=== PATIENT | male | born 2000 | race African-American/Black ===

== ENCOUNTER 2023-04-24 12:10 | Outpatient (REF) | payer OTHER, SELFPAY ==
[2023-04-24 13:44] LABS: Basophils Percent Auto 0.4 % (0-2); Eosinophils Absolute Auto 0.1 X10*3/uL (0.0-0.4); Eosinophils Percent Auto 1.3 % (0-4); Hematocrit 45.2 % (42.0-52.0); Hemoglobin 14.8 g/dl (14.0-18.0); Imm Gran Abs Auto 0.01 X10*3/uL (0.00-0.03); Imm Gran Pct Auto 0.2 % (0.0-0.4); Lymphocytes Absolute Auto 1.6 X10*3/uL (1.2-4.9); Lymphocytes Percent Auto 33.8 % (20-40); MANUAL DIFF FLAG SCAN; Mean Corpuscular HGB Conc 32.7 g/dl (31.0-36.0); Mean Corpuscular Hemoglobin 28.9 pg (27.0-33.0); Mean Corpuscular Volume 88.3 fL (80.0-98.0); Mean Platelet Volume 10.9 fL (9.4-12.4); Monocytes Absolute Auto 0.5 X10*3/uL (0.1-1.2); Monocytes Percent Auto 10.5 % (2-11); Neutrophils Absolute Auto 2.5 x10*3/uL (2.0-8.3); Neutrophils Percent Auto 53.8 % (45-73); Platelet Count 239 X10*3/uL (160-400); Red Blood Count 5.12 X10*6/uL (4.60-5.80); Red Cell Distribution Width 12.4 % (11.0-16.0); SCAN SMEAR FLAG 1; White Blood Count 4.7 X10*3/uL (4.8-10.8)
[2023-04-24 14:18] LABS: SLIDE REVIEW VERIFIED
[2023-04-24 14:41] LABS: Alanine Aminotransferase 18 U/L (0-40); Albumin Level 4.4 g/dL (3.5-5.0); Alkaline Phosphatase 58 U/L (39-117); Anion Gap 16 (12-20); Aspartate Amino Transferase 15 U/L (5-37); Bilirubin Total 0.7 mg/dL (0.0-1.0); Blood Urea Nitrogen 10 mg/dL (9-16); Calcium 9.5 mg/dL (8.4-10.2); Carbon Dioxide 24 mmol/L (22-29); Chloride 106 mmol/L (96-108); Estimated Glomerular Filt Rate > 60; Glucose Random 77 mg/dL (60-115); Potassium 3.5 mmol/L (3.3-5.1); Sodium 142 mmol/L (135-145); Total Protein 7.8 g/dL (6.5-8.0)
[2023-04-25 03:29] LABS: CT PCR DETECTED (Not Detect.); NG PCR NOT DETECTED (Not Detect.)
[2023-04-25 05:07] LABS: Syphilis Screen Nonreactive (Nonreactive)
[2023-04-25 05:31] LABS: HBS Num1 17.67 mIU/mL (0-7.99); HBc Num1 0.12 S/CO (0.00-0.79); HBsAGNum1 0.43 S/CO (0.00-0.99); HIV AB/AG Nonreactive (Nonreactive); HIV Num 1 0.05 S/CO (0.00-0.99); Hepatitis B Core Antibody Nonreactive (Nonreactive); Hepatitis B Surface Antigen Negative (Negative); ~Hepatitis B Surface Antibody REACTIVE (Nonreactive)
[2023-04-25 05:43] LABS: ~HepC Num1 0.16 S/CO (0.00-0.79); ~Hepatitis C Antibody Nonreactive (Nonreactive)
== END 2023-04-24 12:11 | disposition home or self-care (01) ==
LOC: HO.HHCL 12:10
PROVIDERS: Visit Provider Student in an Organized Health Care Education/Training Program
DX: R36.9 Urethral discharge, unspecified (principal)
CPT/HCPCS: 0353U; 36415; 80053; 85025; 86704; 86706; 86780; 86803; 87070; 87205; 87340; 87389

== ENCOUNTER 2023-08-07 10:23 | Outpatient (REF) | payer OTHER, SELFPAY ==
[2023-08-07 11:52] LABS: Cholesterol 130 mg/dL (<200); HDL Cholesterol 54 mg/dL (>40); LDL Cholesterol Calculated 64 mg/dL (<100); Triglycerides 64 mg/dL (<150)
[2023-08-07 13:13] LABS: CT PCR NOT DETECTED (Not Detect.); NG PCR NOT DETECTED (Not Detect.)
== END 2023-08-07 10:24 | disposition home or self-care (01) ==
LOC: HO.HHCL 10:23
PROVIDERS: Visit Provider Internal Medicine Geriatric Medicine
DX: N34.2 Other urethritis (principal); Z13.220 Encounter for screening for lipoid disorders
CPT/HCPCS: 0353U; 36415; 80061

== ENCOUNTER 2023-12-22 09:43 | Outpatient (REF) | payer OTHER, SELFPAY ==
[2023-12-22 11:50] LABS: Anion Gap 8 (12-20); Blood Urea Nitrogen 8 mg/dL (9-16); Calcium 9.8 mg/dL (8.4-10.2); Carbon Dioxide 32 mmol/L (22-29); Chloride 106 mmol/L (96-108); Estimated Glomerular Filt Rate > 60; Glucose Random 88 mg/dL (60-115); Potassium 4.3 mmol/L (3.3-5.1); Sodium 142 mmol/L (135-145)
== END 2023-12-22 09:44 | disposition home or self-care (01) ==
LOC: HO.HHCL 09:43
PROVIDERS: Visit Provider Internal Medicine Geriatric Medicine
DX: Z13.1 Encounter for screening for diabetes mellitus (principal)
CPT/HCPCS: 36415; 80048

== ENCOUNTER 2024-01-19 13:04 | Outpatient (REF) | payer OTHER, SELFPAY ==
[2024-01-20 08:54] LABS: HBS Num1 > 1000.00 mIU/mL (0-7.99); HBc Num1 0.25 S/CO (0.00-0.79); HBsAGNum1 0.38 S/CO (0.00-0.99); Hepatitis B Core Antibody Nonreactive (Nonreactive); Hepatitis B Surface Antigen Negative (Negative); Syphilis Screen Nonreactive (Nonreactive); ~HepC Num1 0.25 S/CO (0.00-0.79); ~Hepatitis B Surface Antibody REACTIVE (Nonreactive); ~Hepatitis C Antibody Nonreactive (Nonreactive)
[2024-01-20 08:56] LABS: Hepatitis A Antibody IgG REACTIVE (Nonreactive); ~Hepatitis A Antibody IgG 12.24 S/CO (0.00-0.99)
[2024-01-20 09:20] LABS: HIV AB/AG Nonreactive (Nonreactive); HIV Num 1 0.87 S/CO (0.00-0.99)
[2024-01-20 11:52] LABS: CT PCR NOT DETECTED (Not Detect.); NG PCR NOT DETECTED (Not Detect.)
== END 2024-01-19 13:05 | disposition home or self-care (01) ==
LOC: HO.HHCL 13:04
PROVIDERS: Visit Provider Family Medicine
DX: R36.9 Urethral discharge, unspecified (principal)
CPT/HCPCS: 0353U; 36415; 86704; 86706; 86708; 86780; 86803; 87340; 87389

== ENCOUNTER 2024-10-18 17:55 | Outpatient (REF) | payer OTHER, SELFPAY ==
--- OUTSIDE RECORDS SUMMARY | 2024-10-18 20:09 | XMS_ITS | Encounter Summary ---
Author Organization [employer] Address [address] [facility] 7t [place] [address] Care Team Providers Care Supervisor Inspection Name Role Phone Name, Ramy COCHRAN Primary Care Provider [phone] Reason for Visit * Reason Comments UTI Encounter Details Date Type Department Care Team ([facility] st Contact Info) Description 10/18/2024 1:00 PM EST Office Visit [facility] [address] [place] [address] [phone] Name, MD Ramy [address] [place] [phone] Dysuria (Primary Dx); UTI symptoms Social History Tobacco Use Types Packs/Day Years Used Date Smoking Tobacco: Never Passive Smoke Exposure: Never Smokeless Tobacco: Never Alcohol Use Standard Drinks/Week Comments Yes 0 (1 standard drink = 0.6 oz pur e alcohol) occassionally Depression Answer Date Recorded Patient Health Questionnaire-9 Score 4 08/13/2024 Patient Health Questionnaire-9 Score 4 08/13/2024 Last PHQ-9: Questionnaire Data Not on file 1 10/13/2023 Housing Stability Answer Date Recorded What is your housing situation today? I have jesus briggs 08/05/[address] you li ve. Do you have problems with any of the following? None of the above 08/05/2024 Food Insecurity Answer Date Recorded Within the past 12 months, y ou worried that your food would run out before you got money to buy more: Never True 08/05/2024 Within the past 12 months,th e food you bought just didn't last and you didn't have enough money to get more: Never True Transportation Answer Date Recorded In the past 12 months, has l ack of transportation kept you from medical appts, meetings, work or from getting things needed for daily living? No 08/05/2024 Utilities Answer Date Recorded In the past 12 months, has t he electric, gas, oil or water company threatened to shut off services in your home? No 08/05/2024 Depression Answer Date Recorded Patient Health Questionnaire-2 Score 3 08/13/2024 Internet Access Answer Date Recorded Internet Access Q1 Yes 08/05/2024 Internet Access Q2 Not on file 08/05/2024 Sex and Gender Information Value Date Recorded Sex Assigned at Male 07/22/2022 10:32 AM EDT Legal Sex Male 10:32 AM EDT Gender Identity Choose not to disclose 10:32 AM EDT Sexual Orientation Choose not to disclose 2021 10:32 AM EDT Travel History Travel Start Travel End [facility] 09/11/2024 09/30/2024 documented as of this encounter Last Filed Vital Signs Vital Sign Reading Time Taken Comments Blood Pressure 155/69 10/18/2024 1:01 PM EST Pulse 90 10/18/2024 1:01 PM EST Temperature 36.8 ??C (98.2 ??F) 10/18/2024 1:01 PM ES T Respiratory Rate 16 10/18/2024 1:01 PM EST Oxygen Saturation 97% 10/18/2024 1:01 PM EST Inhaled Oxygen Concentration - - Weight 92.5 kg (204 lb) 10/18/2024 1:01 PM EST Height - - Body Mass Index 28.45 08/13/2024 10:37 AM EST documented in this encounter Progress Notes * Ramy Hwang MD - 10/18/2024 1:00 PM EST Subjective Patient ID: Warren Rodney is a 24 y.o. adult who presents for UTI. Patient comes complaining of mild dysuria and small amount of urethral discharge since last week. The patient had unprotected intercourse about 2 weeks ago. He is in a monogamous relationship with 1 female assigned at . He denies any other symptoms. He denies any history of insertive anal intercourse. Review of Systems Constitutional: Negative for chills and fever. Genitourinary: Positive for dysuria. See HPI Visit Vitals BP (!) 155/69 (BP Location: Left arm, Patient Position: Sitting, BP Cuff Size: Large adult) Pulse 90 Temp 98.2 ??F (36.8 ??C) (Temporal) Resp 16 Wt 204 lb (92.5 kg) SpO2 97% BMI 28.45 kg/m?? Smoking Status Never BSA 2.15 m?? Objective Physical Exam Constitutional: General: Warren is not in acute distress. Appearance: Warren is not toxic-appearing. Cardiovascular: Rate and Rhythm: Normal rate and regular rhythm. Pulmonary: Effort: Pulmonary effort is normal. Breath sounds: Normal breath sounds. Genitourinary: Penis: Normal. Comments: He showed me a picture of small amount of penile discharge he had this morning Assessment/Plan Diagnoses and all orders for this visit: Dysuria Comments: I will treat empirically for chlamydia and gonorrhea. He will receive 500 mg of ceftriaxone IM today and 7 days of p.o. doxycycline 100 mg twice a day. I recommend the patient to avoid intercourse oruse condoms until we have the results. Further recommendation based on the results and response to the medication started today. Orders: - Urinalysis, Complete, with Reflex to Culture; Future - Chlamydia/N. Gonorrhoeae RNA, TMA, Urogenitial - cefTRIAXone (Rocephin) vial 500 mg - lidocaine (Xylocaine) 1 % injection 50 mg UTI symptoms - POCT urinalysis dipstick manually resulted - Urinalysis, Complete, with Reflex to Culture; Future - Chlamydia/N. Gonorrhoeae RNA, TMA, Urogenitial - cefTRIAXone (Rocephin) vial 500 mg - lidocaine (Xylocaine) 1 % injection 50 mg Other orders - doxycycline (Vibra-Tabs) 100 MG tablet; Take 1 tablet (100 mg) by mouth 2 times daily for 7 days.Take with a full glass of water and do not lie down for at least 30 minutes after. documented in this encounter Plan of Treatment Scheduled Orders Name Type Priority Associated Diagnoses Orde r Schedule Urinalysis, Complete, with Reflex to Culture Lab Routine UTI symptoms Dysuria Expected: 10/18/2024 (Approximate), Expires: 10/18/2025 Chlamydia/N. Gonorrhoeae RNA, TMA, Urogenitial Microbiology Routine UTI symptoms Dysuria Ordered: 10/18/2024 documented as of this encounter Procedures Procedure Name Priority Date/Time Associated Diagnosis Comments POCT URINALYSIS DIPSTICK Routine 10/18/2024 1:12 PM EST UTI symptoms documented in this encounter Results * (ABNORMAL) POCT urinalysis dipstick manually resulted (10/18/2024 1:12 PM EST) Color, UA Yellow Clarity, UA Clear Glucose, UA Negative Bilirubin, UA Negative Ketones, UA Negative Spec Grav, UA 1.025 Blood, UA Negative Negative, None Detected pH, UA 6.0 Protein, UA Trace Urobilinogen, UA 0.2 Leukocytes, UA Few 15(A) Negative, Rare, Trace Nitrite, UA Negative Negative, None Detected Appearance, UA OK Urine 10/18/2024 1:12 PM EST Ramy Hwang MD POINT OF CARE TEST ENTER/EDIT OR DERABLES Final Result documented in this encounter Visit Diagnoses Diagnosis Dysuria- Primary UTI symptoms documented in this encounter Administered Medications Inactive Administered Medications - up to 3 most recent administrations Medication Order MAR Action Action Date Dose Rate Site cefTRIAXone (Rocephin) vial 500 mg 500 mg, Intramuscular, Once, On Fri10/18/24 at 1315, For 1 dose, Suspected Indication (Select all that apply): Sexually Transmitted Infection, Type of Therapy: EmpiricIndications:UTI symptoms,Dysuria Given 10/18/2024 1:15 PM EST 500 mg Right Upper Buttock lidocaine (Xylocaine) 1 % injection 50 mg 50 mg (5 mL), Intradermal, Once, On Fri10/18/24 at 1315, For 1 doseIndications:UTI symptoms,Dysuria Given 10/18/2024 1:15 PM EST 50 mg documented in this encounter Additional Health Concerns Assessment Noted Time PHQ-9 Depression Total Score: 4 08/13/20 24 10:56 AM EST documented as of this encounter Care Teams Supervisor Inspection Relationship Specialty Start Date End Date Name, MD Ramy [address] [place] [address] PCP - General Family Medicine 09/22/18 documented as of this encounter
--- OUTSIDE RECORDS SUMMARY | 2024-10-18 20:09 | XMS_ITS | Clinical Summary ---
Author Organization [employer] Address [address] [facility] 7t [place] [address] Care Team Providers Care Laundry Aid Name Role Phone Name, Ramy COCHRAN Primary Care Provider [phone] Allergies No known active allergies Medications doxycycline (Vibra-Tabs) 100 MG tablet Take 1 tablet (100 mg) by mouth 2 times daily for 7 days. Take with a full glass of water and do not lie down for at least 30 minutes after. 14 tablet 10/18/2024 Active Hospital, Clinic, or Other Facility Administered Medication Ordered Dose Route Frequency Start Date End Date Status cefTRIAXone (Rocephin) vial 500 mgIndications:UTI symptoms,Dysuria 500 mg IM Once 10/18/2024 10/18/2024 Ended lidocaine (Xylocaine) 1 % injection 50 mgIndications:UTI symptoms,Dysuria 50 mg ID Once 10/18/2024 10/18/2024 Ended Active Problems Problem Noted Date Diagnosed Date Penile discharge 01/19/2024 Assessment & Plan (01/19/2024 12:28 PM EDT): - Hx of Chlamydia x 2 . Most recently April 2023. - Recent unprotected sex. - Will treat with presumptive STI with Ceftriaxone and Doxycyline. Urethritis 04/24/2023 Assessment & Plan (04/24/2023 7:01 PM EDT): Pt with symptoms of urethritis with mild dysuria at end of urination and pt reports seen white-purulent discharge Afebrile w Normal exam Pt had recently sex with 2 sexual partners w no protection Hx of gonorrhea 2 y ago Urine dipstick here is neg -pt with meeta risk for STI and with symptoms for possible Gn/vs ch -tx empirically today with CTX 500 mg IM x1 today in clinic and px doxycycline 100 mg BID x 7 days -advised to avoid sun exposure -sent today Urine sample for GN/chl NAAT and I took urethral sample for gn cx -will call pt w lab results but if neg chlamydia will need to stop ATB -if symptoms persist with neg result would test pt x trichomonas -advised to avoid sex for 1 week after tx -discussed about safe sex life and consistent condom use -discussed about consideration for PREP -given has several partners with no condom use-pt would like to think about it but agreed that I request PREP team for them to contact pt to further discuss -STI testing today Acne 09/24/2017 Assessment & Plan (04/16/2023 8:26 PM EDT): there is skin color tiny nodular rash -superficial over neck bl and over back of shoulders and below axilla -rest of exam is normal x 2 days w no systemic symptoms Appears to be over sun exposed areas possible dermatitis -trial w triamcinolone cream BID x no more than 10 days -discussed about STI testing for recent unprotected exposure but rash is not suggestive of it and pt refused testing for now -gave alarm signs and symptoms and to return if rash is not improving --- -pt reports hx of irritation of chin when shaving-not currently and seen in PCP note as well -pt shows me document in his phone that needs log yard manager evaluation to have documented by specialist that pt should not be shaving? -pt requesting dermatology referral -PCP gave similar letter before but states was not accepted at his job in [employer] --gave today referral to log yard manager x it Resolved Problems Problem Noted Date Diagnosed Date Resolved Date Elevated blood pressure reading 04/24/2023 12/22/2023 Assessment & Plan (04/24/2023 7:02 PM EDT): Pt noted to have elevated BP today from normal before Possibly with acute urinary symptoms,anxiety? -advised to f up w PCP to monitor BP COVID-19 virus infection 02/28/202311/2022 Assessment & Plan (02/28/2023 4:15 PM EDT): Drink plenty of fluids and rest If worsening symptoms chest pain, SOB, confusion seek medical attention immediately Acetaminophen PRN Work letter provided Pain in scrotum 05/15/2018 08/07/2023 12/22/2023 Encounters Date Type Department Care Team Description 10/18/2024 1:00 PM EST Office Visit [facility] [address] [place] [phone] Ramy Hwang MD Dysuria (Primary Dx); UTI symptoms 10/18/2024 Orders Only [address] [address] Ramy Hwang MD 10/18/2024 Travel 10/18/[address] [address] Ramy Hwang MD Nurse Triage 08/13/2024 10:30 AM EST Office Visit [address] [address] Ramy Hwang MD PE (physical exam), routine (Primary Dx); Encounter for immunization 08/13/2024 Travel 08/11/[address] [address] Zeenat Rivera [place] Chart Prep 08/05/2024 Patient Outreach [address] [address] Ramy Hwang MD Pre-visit Planning (SDOH Screening negative and Tobacco screening negative) from Last 3 Months Immunizations Name Administration Dates Next Due Hep B, adult 12/22/2023 Influenza injectable quadrivalent preservative f ree 08/07/2023 Influenza, seasonal, injectable, preservative fr ee 08/13/2024 Pfizer Covid-19 Vaccine 12+ 08/13/2024 Tdap 05/15/2018 Social History Tobacco Use Types Packs/Day Years Used Date Smoking Tobacco: Never Passive Smoke Exposure: Never Smokeless Tobacco: Never Tobacco Cessation:Counseling Given: Not Answered Alcohol Use Standard Drinks/Week Comments Yes 0 [...] EDT Travel History Travel Start Travel End [facility] 09/11/2024 09/30/2024 Last Filed Vital Signs Vital Sign Reading Time Taken Comments Blood Pressure 155/69 10/18/2024 1:01 PM EST Pulse 90 10/18/2024 1:01 PM EST Temperature 36.8 ??C (98.2 ??F) 10/18/2024 1:01 PM ES T Respiratory Rate 16 10/18/2024 1:01 PM EST Oxygen Saturation 97% 10/18/2024 1:01 PM EST Inhaled Oxygen Concentration - - Weight 92.5 kg (204 lb) 10/18/2024 1:01 PM EST Height 180.3 cm (5' 11 ) 08/13/2024 10:37 AM EST Body Mass Index 28.45 08/13/2024 10:37 AM EST Plan of Treatment Health Maintenance Due Date Last Done Comments Family Planning (PISQ) 2013 HPV Vaccines (2 - 3-dose series) 01/19/2024 12/22/2023 Hepatitis B Vaccines (2 of 3 - 19+ 3-dose series) 01/19/2024 12/22/2023 SDOH Screening 08/05/2025 08/05/2024 Alcohol/Substance Use Screening 08/13/2025 08/13/2024 Depression Screening 08/13/2025 08/13/2024, 08/13/2024 Tobacco Screening 08/13/2025 08/13/2024 DTaP/Tdap/Td Vaccines (2 - T d or Tdap) 05/15/2028 05/15/2018 Zoster Vaccines (1 of 2) 2048 RSV Patients and Patients Aged 60 years or older (1 - 1-dose 75+ series) 2073 HIV Screening Completed 01/19/2024, 04/24/2023, 04/04/2021 Hepatitis C Screening Completed 01/19/2024 , 04/24/2023, 04/04/2021 COVID-19 Vaccine Completed 08/13/2024, 09/03/2021, 08/13/2021 Influenza Vaccine Completed 08/13/2024, 08/07/2023 HIB Vaccines Aged Out No longer eligi ble based on patient's age to complete this topic Hepatitis A Vaccines Aged Out No long er eligible based on patient's age to complete this topic IPV Vaccines Aged Out No longer eligi ble based on patient's age to complete this topic Meningococcal Vaccine Aged Out No reinaldo waleska eligible based on patient's age to complete this topic Pneumococcal Vaccine: Pediatrics (0 to 5 Years) and At-Risk Patients (6 to 64 Years) Aged Out No longer eligible b ased on patient's age to complete this topic RSV under 20 months Aged Out No longe r eligible based on patient's age to complete this topic Rotavirus Vaccines Aged Out No longer eligible based on patient's age to complete this topic Procedures Procedure Name Priority Date/Time Associated Diagnosis Comments CANCELLED SEROLOGY Routine 10/18/2024 1: 14 PM EST POCT URINALYSIS DIPSTICK Routine 10/18/2024 1:12 PM EST UTI symptoms HEPATITIS C AB W/REFL TO HCV RNA, QN, PCR Routine 01/19/2024 1:06 PM EDT Penile discharge HIV 1/2 ANTIGEN/ANTIBODY, FOURTH GENERATION W/RFL Routine 01/19/2024 1:06 PM EDT Penile discharge from Last 3 Months or Most Recently Relevant to Health Maintenance Results * Cancelled Serology (10/18/2024 1:14 PM EST) Cancelled Serology SEE NOTE [facility] Comment:THE FOLLOWING TESTS WERE CANCELLED: CTNG BY PCRREASON: WORNG CONTAINER 10/18/2024 1:14 PM EST 10/18/2024 5:59 PM EST us Ramy Hwang MD HISTORICAL/NON ORDERABLE LABS Fi nal Result [facility] [address] [place] [phone] * (ABNORMAL) POCT urinalysis dipstick manually resulted [...] UA OK Urine 10/18/2024 1:12 PM EST us Ramy Hwang MD POINT OF CARE TEST ENTER/EDIT OR DERABLES Final Result * Hepatitis C Antibody with Reflex to HCV, RNA, Quantitative, Real-Time PCR (01/19/2024 1:06 PM EDT) Hepatitis C Antibody Nonreactive Nonreactive [facility] Comment:Antibodies to HCV no t detected; does not exclude early acuteHCV infection. Blood Venous blood specimen / Unknown 01/19/2024 1:06 PM EDT 01/19/2024 4:08 PM EDT us Taylor Chaves MD LAB BLOOD ORDERABLES Final Resul t [facility] [address] [place] [address] [phone] * HIV-1/2 Antigen and Antibodies, Fourth Generation, with Reflexes (01/19/2024 1:06 PM EDT) HIV AB/AG Nonreactive Nonreactive [facility] Comment:HIV-1 p24 Ag and/or HIV-1/HIV-2 Ab not detected.A test result that is nonreactive does not exclude thepossibility of exposure to or infection with HIV-1 and/orHIV-2. Nonreactive results in this assay for individualswith prior exposure to HIV-1 and/or HIV-2 may be due toantigen and antibody levels that are below the limit ofdetection of this assay.The [employer] HIV Ag/Ab Combo assay result andsupplemental assay results should be interpreted inconjunction with the patient's clinical presentation,history and other laboratory results. If the results areinconsistent with clinical evidence, additional testing issuggested to confirm the result. Blood Venous blood specimen / Unknown 01/19/2024 1:06 PM EDT 01/19/2024 4:08 PM EDT us Taylor Chaves MD LAB BLOOD ORDERABLES Final Resul t [facility] [address] [place] [address] [phone] from Last 3 Months or Most Recently Relevant to Health Maintenance Insurance [facility] UNICARE UNICARE Care Teams Laundry Aid Relationship Specialty Start Date End Date Name, MD Ramy [address] [place] [phone] PCP - General Family Medicine 09/22/18
--- OUTSIDE RECORDS SUMMARY | 2024-10-18 20:09 | XMS_ITS | Encounter Summary ---
Author Organization [employer] Address [address] [facility] 7t [place] [address] Care Team Providers Care Superintendent Commissary Name Role Phone Name, Ramy COCHRAN Primary Care Provider [phone] Encounter Details Date Type Department Care Team ([facility] st Contact Info) Description 10/18/2024 Orders Only [facility] MEDICINE [address] [place], [place] [phone] Name, MD Ramy [address] [place] [address] Social History Tobacco Use Types Packs/Day Years [...] EDT Travel History Travel Start Travel End [facility] 09/11/2024 09/30/2024 documented as of this encounter Plan of Treatment Not on file documented as of this encounter Procedures Procedure Name Priority Date/Time Associated Diagnosis Comments CANCELLED SEROLOGY Routine 10/18/2024 1: 14 PM EST documented in this encounter Results * Cancelled Serology (10/18/2024 1:14 PM EST) Cancelled Serology SEE NOTE [facility] Comment:THE FOLLOWING TESTS WERE CANCELLED: CTNG BY PCRREASON: WORNG CONTAINER 10/18/2024 1:14 PM EST 10/18/2024 5:59 PM EST Ramy Hwang MD HISTORICAL/NON ORDERABLE LABS Fi nal Result [facility] [address] [place], [place] [phone] documented in this encounter Visit Diagnoses Not on filedocumented in this encounter Additional Health Concerns Assessment Noted Time PHQ-9 Depression Total Score: 4 08/13/20 24 10:56 AM EST documented as of this encounter Care Teams Superintendent Commissary Relationship Specialty Start Date End Date Name, MD Ramy [address] [place] [phone] PCP - General Family Medicine 09/22/18 documented as of this encounter
--- OUTSIDE RECORDS SUMMARY | 2024-10-18 20:09 | XMS_ITS | Encounter Summary ---
Author Organization [employer] Address [address] [facility] 7t [place] [address] Care Team Providers Care Spinning Frame Fixer Name Role Phone Name, Ramy COCHRAN Primary Care Provider [phone] Encounter Details Date Type Department Care Team (Latest Contact Info) Description 10/18/2024 Travel Social History Tobacco Use Types Packs/Day Years [...] EDT Travel History Travel Start Travel End [place] 09/11/2024 09/30/2024 documented as of this encounter Plan of Treatment Not on file documented as of this encounter Visit Diagnoses Not on filedocumented in this encounter Additional Health Concerns Assessment Noted Time PHQ-9 Depression Total Score: 4 08/13/20 24 10:56 AM EST documented as of this encounter Care Teams Spinning Frame Fixer Relationship Specialty Start Date End Date Name, MD Ramy [address] [place] [id number] PCP - General Family Medicine 09/22/18 documented as of this encounter
--- OUTSIDE RECORDS SUMMARY | 2024-10-18 20:09 | XMS_ITS | Encounter Summary ---
Author Organization [employer] Address [address] [facility] 7 [place] [address] Care Team Providers Care Civil Cad Tech Name Role Phone Name, Ramy COCHRAN Primary Care Provider [phone] Reason for Visit * Reason Onset Date Comments Nurse Triage 10/18/2024 Encounter Details Date Type Department Care Team ([facility] st Contact Info) Description 10/18/2024 Telephone [facility] MEDICINE [address] [place], [place] [phone] Name, MD Ramy [address] [place] [address] Nurse Triage Social History Tobacco Use Types Packs/Day Years [...] EDT Travel History Travel Start Travel End [place] 09/11/2024 09/30/2024 documented as of this encounter Miscellaneous Notes * Telephone Encounter - Georgina Patterson RN - 10/18/2024 9:11 AM EST Called pt. He states that every morning when he uses the bathroom, he has pain with urination. The rest of the day he is fine but his initial urine in am is cloudy and some white discharge comes out of penis. Pt. Is sexually active but, states he has had a partner x 3 months. Pt. Does not use protection. Advised pt. To go to walk in now to be able to get a slot in walk in for this afternoon as walk in is already booked for this am and pt. Wants to be seen today. No fever, no blood in urine. Pt. States he drinks plenty of water throughout the day so he knows he is hydrated. Protocol Used: Urination Pain - Male (Adult) *Pain with first morning urine *urine cloudy with white discharge Protocol-Based Disposition: See in Office or Video Visit Today- will go to walk in today at [facility]. Positive Triage Question: * All other males with painful urination, or patient wants to be seen * All higher-acuity triage questions were negative Care Advice Discussed: * Reassurance and Education - Urination Pain * Drink Extra Fluids * Drink Extra Fluids - Extra Notes and Warnings * Telephone Encounter - Rocky Miranda - 10/18/2024 8:59 AM EST Symptom: Penis Symptoms Outcome: Talk to a nurse or provider within 15 minutes Reason: Can't pass urine (can't pee) The caller accepted this outcome. documented in this encounter Plan of Treatment Not on file documented as of this encounter Visit Diagnoses Not on filedocumented in this encounter Additional Health Concerns Assessment Noted Time PHQ-9 Depression Total Score: 4 08/13/20 24 10:56 AM EST documented as of this encounter Care Teams Civil Cad Tech Relationship Specialty Start Date End Date Name, MD Ramy [address] [place] [phone] PCP - General Family Medicine 09/22/18 documented as of this encounter
== END 2024-10-18 17:56 | disposition home or self-care (01) ==
LOC: HO.HHCLNP 17:55
PROVIDERS: Visit Provider Internal Medicine Geriatric Medicine
DX: R39.9 Unspecified symptoms and signs involving the genitourinary system (principal)
CPT/HCPCS: 36415

== ENCOUNTER 2024-10-20 16:13 | Outpatient (REF) | payer OTHER, SELFPAY ==
--- OUTSIDE RECORDS SUMMARY | 2024-10-20 17:47 | XMS_ITS | Encounter Summary ---
Author Organization [employer] Address 75 [facility] 7t [place] [address] Care Team Providers Care Car Shagger Name Role Phone Name, Ramy COCHRAN Primary Care Provider [phone] Reason for Visit * Reason Onset Date Comments Lab Orders 10/19/2024 Encounter Details Date Type Department Care Team ([facility] Contact Info) Description 10/19/2024 Telephone [facility]ICINE [address] [place], [place] [phone] Kitty Pan RN [address] [place], [place] [phone] Lab Orders Social History Tobacco Use Types Packs/Day Years [...] EDT Travel History Travel Start Travel End [place] 09/11/2024 09/30/2024 documented as of this encounter Miscellaneous Notes * Telephone Encounter - Holly Lugo RN - 10/20/2024 9:23 AM EST TC placed to pt to inform that he needs to come to lab to complete a urine sample and new orders were placed by PCP. Advised the lab at [facility] closes at 4:50. Pt states he will come to lab after he is out of work today. Pt verbalized understanding and denies any questions or concerns at this time. * Addendum Note - Ramy Toscano MD - 10/20/2024 7:07 AM ESTAddended by: RAMY TOSCANO on: 10/20/2024 07:07 AM Modules accepted: Orders * Telephone Encounter - Ramy Toscano MD - 10/20/2024 7:05 AM EST Yes, I need a new sample. Please let the patient know. I will reorder for him * Telephone Encounter - Kitty Pan RN - 10/19/2024 4:45 PM EST Received message from [facility] lab stating they did not receive the correct urine sample to process the CT/NG RNA Urogenital lab order. The urine was collected in the wrong cup. The correct urine cup is the small white cup with the green label. Message sent to Dr. Toscano to determine if patient needs to submit new specimen. documented in this encounter Plan of Treatment Scheduled Orders Name Type Priority Associated Diagnoses Orde r Schedule Chlamydia/N. Gonorrhoeae RNA, TMA, Urogenitial Microbiology Routine Dysuria Penile discharge Expected: 10/20/2024 (Approximate), Expires: 10/20/2025 documented as of this encounter Visit Diagnoses Diagnosis Dysuria- Primary Penile discharge Urethral discharge documented in this encounter Additional Health Concerns Assessment Noted Time PHQ-9 Depression Total Score: 4 08/13/20 24 10:56 AM EST documented as of this encounter Care Teams Car Shagger Relationship Specialty Start Date End Date Name, MD Ramy [address] [place] [address] PCP - General Family Medicine 09/22/18 documented as of this encounter
--- OUTSIDE RECORDS SUMMARY | 2024-10-20 17:47 | XMS_ITS | Encounter Summary ---
Author Organization [employer] Address 75 [facility] 7t [place] [address] Care Team Providers Care Physician Practice Market Manager Name Role Phone Name, Ramy COCHRAN Primary Care Provider [phone] Encounter Details Date Type Department Care Team [...] documented as of this encounter Care Teams Physician Practice Market Manager Relationship Specialty Start Date End Date Name, MD Ramy [address] [place] [address] PCP - General Family Medicine 09/22/18 documented as of this encounter
--- OUTSIDE RECORDS SUMMARY | 2024-10-20 17:48 | XMS_ITS | Encounter Summary ---
Author Organization [employer] Address 75 [facility] 7 [place] [address] Care Team Providers Care Electro Tech Name Role Phone Name, Ramy COCHRAN Primary Care Provider [phone] Reason for Visit * Reason Onset Date Comments Nurse Triage 10/18/2024 Encounter Details Date Type Department Care Team ([facility] st Contact Info) Description 10/18/2024 Telephone [facility] MEDICINE [address] [place], [place] [phone] Name, MD Ramy [address] [place] [address] Nurse Triage Social History Tobacco Use Types [...] EDT Travel History Travel Start Travel End [place] 09/11/2024 09/30/2024 documented as of this [...] will go to walk in today at [facility]. Positive Triage Question: * All other males [...] documented as of this encounter Care Teams Electro Tech Relationship Specialty Start Date End Date Name, MD Ramy [address] [place] [address] PCP - General Family Medicine 09/22/18 documented as of this encounter
--- OUTSIDE RECORDS SUMMARY | 2024-10-20 17:48 | XMS_ITS | Clinical Summary ---
Author Organization [employer] Address 75 [facility] 7t [place] [address] Care Team Providers Care Automobile Painter Name Role Phone Name, Ramy COCHRAN Primary Care Provider [phone] Allergies No known active allergies Medications doxycycline [...] me document in his phone that needs electrician substation evaluation to have documented by specialist that pt should not be shaving? -pt requesting dermatology referral -PCP gave similar letter before but states was not accepted at his job in [employer] --gave today referral to electrician substation x it Resolved Problems Problem Noted Date [...] Encounters Date Type Department Care Team Description 10/19/[address] [address] Kitty Pan RN Lab Orders 10/18/2024 1:00 PM EST Office Visit [facility] [address] [place] [address] Ramy Hwang MD Dysuria (Primary Dx); UTI symptoms 10/18/2024 Orders Only [address] [address] Ramy Hwang MD 10/18/2024 Travel 10/18/[address] [address] Ramy Hwang MD Nurse Triage 08/13/2024 10:30 AM EST Office Visit [address] [address] Ramy Hwang MD PE (physical exam), routine (Primary Dx); Encounter for immunization 08/13/2024 Travel 08/11/[address] [address] Zeenat Rivera [place] Chart Prep 08/05/2024 Patient Outreach [address] [address] Ramy Hwang MD Pre-visit Planning (SDOH Screening [...] EDT Travel History Travel Start Travel End [place] 09/11/2024 09/30/2024 Last Filed Vital Signs Vital [...] 5 Years) and At-Risk Patients (6 to 49) Years) Aged Out No longer eligible b [...] 1:14 PM EST) Cancelled Serology SEE NOTE [facility] Comment:THE FOLLOWING TESTS WERE CANCELLED: CTNG BY PCRREASON: WORNG CONTAINER 10/18/2024 1:14 PM EST 10/18/2024 5:59 PM EST us Ramy Hwang MD HISTORICAL/NON ORDERABLE LABS Fi nal Result [facility] [address] [place] [phone] * (ABNORMAL) POCT urinalysis dipstick manually resulted [...] Quantitative, Real-Time PCR (01/19/2024 1:06 PM EDT) [facility] Hepatitis C Antibody Nonreactive Nonreactive [facility] Comment:Antibodies to HCV no t detected; does not exclude early acuteHCV infection. Blood Venous blood specimen / Unknown 01/19/2024 1:06 PM EDT 01/19/2024 4:08 PM EDT Taylor Chaves MD LAB BLOOD ORDERABLES Final Resul t Performing Organization Address [facility]/ZIP Co de Phone Number [facility] [address] [place] [phone] * HIV-1/2 Antigen and Antibodies, Fourth Generation, with Reflexes (01/19/2024 1:06 PM EDT) [facility] HIV AB/AG Nonreactive Nonreactive [facility] Comment:HIV-1 p24 Ag and/or HIV-1/HIV-2 Ab not detected.A test result that is nonreactive does not exclude thepossibility of exposure to or infection with HIV-1 and/orHIV-2. Nonreactive results in this assay for individualswith prior exposure to HIV-1 and/or HIV-2 may be due toantigen and antibody levels that are below the limit ofdetection of this assay.The mxHeroniPost-A-Vox HIV Ag/Ab Combo assay result andsupplemental assay results should be interpreted inconjunction with the patient's clinical presentation,history and other laboratory results. If the results areinconsistent with clinical evidence, additional testing issuggested to confirm the result. Blood Venous blood specimen / Unknown 01/19/2024 1:06 PM EDT 01/19/2024 4:08 PM EDT Taylor Chaves MD LAB BLOOD ORDERABLES Final Resul t Performing Organization Address City/[facility]/ZIP Co de Phone Number [facility] [address] [place] [phone] from Last 3 Months or Most Recently Relevant to Health Maintenance Insurance [id number] Care Teams Automobile Painter Relationship Specialty Start Date End Date Name, MD Ramy [address] [place] [address] PCP - General Family Medicine 09/22/18
--- OUTSIDE RECORDS SUMMARY | 2024-10-20 17:48 | XMS_ITS | Encounter Summary ---
Author Organization [employer] Address 75 [facility] 7t [place] [address] Care Team Providers Care Public Area Attendant Name Role Phone Name, Ramy COCHRAN Primary Care Provider Reason for Visit * Reason Comments UTI Encounter Details Date Type Department Care Team ([facility] st Contact Info) Description 10/18/2024 1:00 PM EST Office Visit [facility] [address] [place] [phone] Name, MD Ramy [address] [place] [phone] Dysuria (Primary Dx); UTI symptoms Social History [...] Travel History Travel Start Travel End [facility] 09/11/2024 09/30/2024 documented as of this encounter [...] documented as of this encounter Care Teams Public Area Attendant Relationship Specialty Start Date End Date Name, MD Ramy [address] [place] [address] PCP - General Family Medicine 09/22/18 documented as of this encounter
--- OUTSIDE RECORDS SUMMARY | 2024-10-20 17:48 | XMS_ITS | Encounter Summary ---
Author Organization [employer] Address 75 [facility] 7t [place] [address] Care Team Providers Care Activity Therapy Specialist Name Role Phone Name, Ramy COCHRAN Primary Care Provider Encounter Details Date Type Department Care Team ([facility] st Contact Info) Description 10/18/2024 Orders Only [facility] MEDICINE [address] [place], [place] [phone] Name, MD Ramy [address] [place] [address] Social History Tobacco Use Types Packs/Day Years [...] EDT Travel History Travel Start Travel End [facility] 09/11/2024 09/30/2024 documented as of this encounter Plan of Treatment Not on file documented as of this encounter Procedures Procedure Name Priority Date/Time Associated Diagnosis Comments CANCELLED SEROLOGY Routine 10/18/2024 1: 14 PM EST documented in this encounter Results * Cancelled Serology (10/18/2024 1:14 PM EST) Cancelled Serology SEE NOTE [facility] Comment:THE FOLLOWING TESTS WERE CANCELLED: CTNG BY PCRREASON: WORNG CONTAINER 10/18/2024 1:14 PM EST 10/18/2024 5:59 PM EST Ramy Hwang MD HISTORICAL/NON ORDERABLE LABS Fi nal Result [facility] [address] [place], [place] [phone] documented in this encounter Visit Diagnoses Not on filedocumented in this encounter Additional Health Concerns Assessment Noted Time PHQ-9 Depression Total Score: 4 08/13/20 24 10:56 AM EST documented as of this encounter Care Teams Activity Therapy Specialist Relationship Specialty Start Date End Date Name, MD Ramy [address] [place] [address] PCP - General Family Medicine 09/22/18 documented as of this encounter
[2024-10-20 18:09] LABS: Appearance Urine Clear; Color Urine Yellow; Glucose Urine UA Negative (Negative); Leukocyte Esterase Urine Negative (Negative); Nitrite Urine Negative (Negative); Urine Blood Negative (Negative); Urine Ketones Negative (Negative); Urine Protein Negative (Neg-Trace)
[2024-10-20 18:12] LABS: Bacteria Urine None Seen (None Seen); Hyaline Casts Urine 0-2 /LPF (0-2); RBC Urine 0-2 /HPF (0-2); Squamous Epithelial Cell Urine 0-2 /HPF (0-2); WBC Urine 0-5 /HPF (0-5)
[2024-10-21 18:49] LABS: CT PCR NOT DETECTED (Not Detect.); NG PCR NOT DETECTED (Not Detect.)
== END 2024-10-20 16:14 | disposition home or self-care (01) ==
LOC: HO.HHCL 16:13
PROVIDERS: Visit Provider Internal Medicine Geriatric Medicine
DX: R30.0 Dysuria (principal); R36.9 Urethral discharge, unspecified; R39.9 Unspecified symptoms and signs involving the genitourinary system
CPT/HCPCS: 81001; 87491; 87591

== ENCOUNTER 2024-11-03 16:40 | Outpatient (REF) | payer OTHER, SELFPAY ==
[2024-11-04 06:37] LABS: CT PCR NOT DETECTED (Not Detect.); NG PCR NOT DETECTED (Not Detect.)
[2024-11-04 22:28] LABS: Trichomonas vaginalis RNA NOT DETECTED (NOT DETECTED)
[2024-11-07 19:48] LABS: Mycoplasma genitalium RNA Detected (Not Detected); Mycoplasma hominis PCR Not Detected (Not Detected); Ureaplasma parvum PCR Not Detected (Not Detected); Ureaplasma urealyticum PCR Not Detected (Not Detected)
== END 2024-11-03 16:41 | disposition home or self-care (01) ==
LOC: HO.HHCLNP 16:40
DX: N34.2 Other urethritis (principal)
CPT/HCPCS: 87491; 87563; 87591; 87661; 87798

== ENCOUNTER 2024-12-29 16:59 | Outpatient (REF) | payer OTHER, SELFPAY ==
[2024-12-29 17:09] LABS: Appearance Urine Clear; Color Urine Yellow; Glucose Urine UA Negative (Negative); Leukocyte Esterase Urine Trace (Negative); Nitrite Urine Negative (Negative); Specific Gravity - Urine 1.025 (1.005-1.025); UMIC TRIGGER UACC YES; Urine Blood Negative (Negative); Urine Ketones Trace mg/dL (Negative); Urine Protein Negative (Neg-Trace)
[2024-12-29 17:14] LABS: Bacteria Urine None Seen (None Seen); Hyaline Casts Urine 0-2 /LPF (0-2); RBC Urine 0-2 /HPF (0-2); Squamous Epithelial Cell Urine 0-2 /HPF (0-2); UACC Culture Trigger YES
--- OUTSIDE RECORDS SUMMARY | 2024-12-29 17:54 | XMS_ITS | Encounter Summary ---
Author Organization [employer] Address 75 [facility] 7 [place] [address] Care Team Providers Care Lockstitch Collar Setter Name Role Phone Name, Ramy COCHRAN Primary Care Provider [phone] Reason for Visit * Reason Onset Date Comments Appointment Request 12/24/2024 Encounter Details Date Type Department Care Team ([facility] Contact Info) Description 12/24/2024 Telephone [facility]INE [address] [place], [place] [phone] Name, MD Ramy [address] [place] [address] Appointment Request Social History Tobacco Use Types Packs/Day Years [...] not to disclose 2021 10:32 AM EDT documented as of this encounter Miscellaneous Notes * Telephone Encounter - Edna Wright - 12/24/2024 10:16 AM EDT Tc from pt requesting a callback as he will like to r/s appointment scheduled due to work schedule.Pt is requesting appointment to be R/S for March or April Please return call [phone] documented in this encounter Plan of Treatment Upcoming Encounters Date Type Department Care Team (Late st Contact Info) Description 03/21/2025 11:30 AM EDT Office Visit [facility] [address] [place] [address] Name, MD Ramy [address] [place] [address] documented as of this encounter Visit Diagnoses Not on filedocumented in this encounter Additional Health Concerns Assessment Noted Time PHQ-9 Depression Total Score: 4 08/13/20 24 10:56 AM EST documented as of this encounter Care Teams Lockstitch Collar Setter Relationship Specialty Start Date End Date NameRamy MD [address] [place] [address] PCP - General Family Medicine 09/22/18 documented as of this encounter
--- OUTSIDE RECORDS SUMMARY | 2024-12-29 17:54 | XMS_ITS | Encounter Summary ---
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 (Primary Dx); Dysuria; Urethral discharge; Scrotal pain; Urethritis Social History Tobacco Use Types Packs/Day Years [...] AM EDT documented as of this encounter Last Filed Vital Signs Vital Sign Reading Time Taken Comments Blood Pressure 149/74 12/29/2024 2:07 PM EDT Pulse 68 12/29/2024 2:07 PM EDT Temperature - - Respiratory Rate 21 12/29/2024 2:07 PM EDT Oxygen Saturation 98% 12/29/2024 2:07 PM EDT Inhaled Oxygen Concentration - - Weight 92.4 kg (203 lb 12.8 oz) 12/29/2024 2:07 PM EDT Height 180.3 cm (5' 11 ) 12/29/2024 2:07 PM EDT Body Mass Index 28.42 12/29/2024 2:07 PM EDT documented in this encounter Progress Notes * Ramy Hwnag MD - 12/29/2024 2:00 PM EDT Subjective Patient ID: [place] Rodney is a 24 y.o. adult who presents for Difficulty Urinating, urethral discharge, and Testicle Pain. Patient comes complaining of 2 days of dysuria, clear urethral discharge, and 1 day of right scrotal discomfort. The patient is monogamous with 1 female partner. He was treated for mycoplasma genitalium infection last month. He has not been sexually active since last month. He tested negative for chlamydia and gonorrhea in September and October. He tested negative for HIV, syphilis, viral hepatitis last year. Review of Systems Constitutional: Negative for chills and fever. HENT: Negative for sore throat. Respiratory: Negative for cough, shortness of breath and wheezing. Cardiovascular: Negative for chest pain, palpitations and leg swelling. Gastrointestinal: Negative for abdominal pain. Genitourinary: See HPI Visit Vitals BP (!) 149/74 (BP Location: Left arm, Patient Position: Sitting, BP Cuff Size: Adult) Pulse 68 Resp 21 Ht 5' 11 (1.803 m) Wt 203 lb 12.8 oz (92.4 kg) SpO2 98% BMI 28.42 kg/m?? Smoking Status Never BSA 2.15 m?? Objective Physical Exam Constitutional: General: [place] is not in acute distress. Appearance: [place] is not toxic-appearing. Cardiovascular: Rate and Rhythm: Normal rate and regular rhythm. Pulses: Normal pulses. Heart sounds: No murmur heard. Genitourinary: Penis: Normal. Testes: Normal. Latest Reference Range & Units 11/03/24 00:00 11/03/24 14:29 Trichomas vaginalis RNA, QL, TMA NOT DETECTED NOT DETECTED CT PCR Not Detect. NOT DETECTED Mycoplasma Genitalium, rRNA,TMA Not Detected Detected ! MYCOPLASMA/UREAPLASMA PANEL Rpt ! NG PCR Not Detect. NOT DETECTED Sureswab(R), Mycoplasma Hominis, Real-Time Pcr Not Detected Not Detected U. Parvum DNA Not Detected Not Detected U. Urealyticum DNA Not Detected Not Detected !: Data is abnormal Rpt: View report in Results Review for more information Assessment/Plan Diagnoses and all orders for this visit: Dysuria/Urethritis due to Mycoplasma genitalium Comments: Possible mycoplasma genitalium treatment failure. I will treat again with Doxy 100 mg twice a day for 7 days followed by moxifloxacin 400 mg but I will extend the course of moxifloxacin to 14 days. I am retesting him for GC, chlamydia, mycoplasma, check urine culture. I asked him to please call if he has persistent symptoms after finishing the antibiotics. We discussed the side effects of quinolones. I recommended to avoid heavy lifting for a couple of weeks because of the possibility of tendinitis. I recommended referral to ID because of possible resistant mycoplasma genitalium infection but he would like to wait to see how he feels after is done with the antibiotics. Orders: - Chlamydia/N. Gonorrhoeae RNA, TMA, Urogenitial - Mycoplasma genitalium, rRNA, TMA; Future - Urinalysis, Complete, with Reflex to Culture; Future Urethral discharge - Chlamydia/N. Gonorrhoeae RNA, TMA, Urogenitial - Mycoplasma genitalium, rRNA, TMA; Future - Urinalysis, Complete, with Reflex to Culture; Future Scrotal pain - Chlamydia/N. Gonorrhoeae RNA, TMA, Urogenitial - Mycoplasma genitalium, rRNA, TMA; Future - Urinalysis, Complete, with Reflex to Culture; Future Urethritis - Chlamydia/N. Gonorrhoeae RNA, TMA, Urogenitial - Mycoplasma genitalium, rRNA, TMA; Future - Urinalysis, Complete, with Reflex to Culture; Future Other orders - doxycycline (Vibra-Tabs) 100 MG tablet; Take 1 tablet (100 mg) by mouth 2 times daily for 7 days.Take with a full glass of water and do not lie down for at least 30 minutes after. - moxifloxacin (Avelox) 400 MG tablet; Take 1 tablet (400 mg) by mouth Once per day for 14 days. documented in this encounter Plan of Treatment Upcoming Encounters Date Type Department Care Team (Late st Contact Info) Description 03/21/2025 11:30 AM EDT Office Visit [facility] [address] [place] [phone] Name, MD Ramy [address] [place] [phone] Scheduled Orders Name Type Priority Associated Diagnoses Orde r Schedule Chlamydia/N. Gonorrhoeae RNA, TMA, Urogenitial Microbiology Routine Dysuria Urethral discharge Scrotal pain Urethritis Ordered: 12/29/2024 Mycoplasma genitalium,??rRNA, TMA Lab Routine Dysuria Urethral discharge Scrotal pain Urethritis Expected: 12/29/2024 (Approximate), Expires: 12/29/2025 documented as of this encounter Procedures Procedure Name Priority Date/Time Associated Diagnosis Comments URINALYSIS, COMPLETE, WITH REFLEX TO CULTURE Routine 12/29/2024 2:30 PM EDT Dysuria Urethral discharge Scrotal pain Urethritis documented in this encounter Results * (ABNORMAL) Urinalysis, Complete, with Reflex to Culture (12/29/2024 2:30 PM EDT) Color Urine Yellow [facility] Appearance Urine Clear [facility] PH 6.0 5.0 - 9.0 [facility] Glucose Urine UA Negative Negative mg/dL [facility] Urine Blood Negative Negative [facility] Specific [place] - Urine 1.025 1.005 - 1.025 [facility] Urine Protein Negative Neg-Trace mg/dL [facility] Urine Ketones Trace Negative mg/dL [facility] Nitrite Urine Negative Negative [facility] Leukocyte Esterase Urine Trace(A) Negative [facility] RBC Urine 0-2 0 - 2 /HPF [facility] Urine WBC 11-20(A) 0 - 5 /HPF [facility] Urine Squamous Epithelial Cell 0-2 0 - 2 /HPF [facility] Urine Bacteria None Seen None Seen [facility] Hyaline Casts, Urine 0-2 0 - 2 /LPF [facility] Urine 12/29/2024 2:30 PM EDT 12/29/2024 5:02 PM EDT Narrative [facility] - 12/29/2024 5:19 PM EDT Urine, Clean Catch Ramy Hwang MD LAB URINE ORDERABLES Final Resul t [facility] [address] [place], [place] [phone] documented in this encounter Visit Diagnoses Diagnosis Urethritis due to Mycoplasma genitalium- Primary Dysuria Urethral discharge Scrotal pain Unspecified disorder of male genital organs Urethritis Unspecified urethritis documented in this encounter Additional Health Concerns Assessment Noted Time PHQ-9 Depression Total Score: 4 08/13/20 24 10:56 AM EST documented as of this encounter Care Teams Knife Glazer Relationship Specialty Start Date End Date Name, MD Ramy [address] [place] [address] PCP - General Family Medicine 09/22/18 documented as of this encounter
--- OUTSIDE RECORDS SUMMARY | 2024-12-29 17:54 | XMS_ITS | Clinical Summary ---
Author Organization [employer] Address [address] [facility] 7[address] [place] [address] Care Team Providers Care Manager Organizational Name Role Phone Name, Ramy COCHRAN Primary Care Provider [phone] Allergies No known active allergies Medications doxycycline (Vibra-Tabs) 100 MG tablet Take 1 tablet (100 mg) by mouth 2 times daily for 7 days. Take with a full glass of water and do not lie down for at least 30 minutes after. 14 tablet 5 025 Active moxifloxacin (Avelox) 400 MG tablet Take 1 tablet (400 mg) by mouth Once per day for 14 days. 14 tablet 5 025 Active moxifloxacin (Avelox) 400 MG tabletIndicati ons:Urethritis Once you complete the course of doxycycline, please start this medication. Take 1 tablet daily for 7 days. 7 tablet 5 025 Discontinued Active Problems Problem Noted Date Diagnosed Date Urethritis 04/24/2023 Assessment & Plan (11/03/2024 2:40 PM EST): Pt past GC/CT and U/A neg Pt was treated for gonorrhea and had partial treatment for chlamydia Urethritis symptoms are persistent Will repeat GC/CT today and also test for trich and mycoplasma Will treat empirically for mycoplasma per UpToDate guidelines: doxycycline 100 mg BID x 7 days, followed by moxifloxacin 400 mg once daily x 7 days Will f/u with results and any changes to treatment if necessary Pt may RTC if symptoms worsen or do not improve with treatment Advised to abstain from sexual intercourse during course of treatment and encouraged safe sexual practices and use of condoms. Assessment & Plan (04/24/2023 7:01 PM EDT): [...] me document in his phone that needs railway signal operator evaluation to have documented by specialist that pt should not be shaving? -pt requesting dermatology referral -PCP gave similar letter before but states was not accepted at his job in [employer] --gave today referral to railway signal operator x it Resolved Problems Problem Noted Date Diagnosed Date Resolved Date Penile discharge 01/19/2024 11/03/2024 Assessment & Plan (01/19/2024 12:28 PM EDT): - Hx of Chlamydia x 2 . Most recently April 2023. - Recent unprotected sex. - Will treat with presumptive STI with Ceftriaxone and Doxycyline. 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); Dysuria; Urethral discharge; Scrotal pain; Urethritis 12/29/2024 Travel 12/29/[address] [address] Ramy Hwang MD Nurse Triage 12/24/[address] [address] Rock Chance [place] Appointment Request 12/24/[address] [address] Ramy Hwang MD Appointment Request 11/09/[address] [address] Zamzam Rizzo RN 11/03/2024 2:00 PM EST Office Visit [address] [address] Ramírez, Alexxis, HOOK AND EYE MACHINE OPERATOR Urethritis (Primary Dx) 11/03/2024 Travel 11/03/2024 Telephone [facility] [address] [place] [address] Ramy Hwang MD Nurse Triage 10/22/2024 Telephone [facility] [address] [place] [address] Holly Lugo, DOYLE 10/19/[address] [address] Kitty Pan, general practitioner Orders 10/18/2024 1:00 PM EST Office Visit [facility] [address] [place] [address] Ramy Hwang MD Dysuria (Primary Dx); UTI symptoms 10/18/2024 Orders Only [facility] [address] [place] [address] Ramy Hwang MD 10/18/2024 Travel 10/18/[address] [address] Ramy Hwang MD Nurse Triage from Last 3 Months Immunizations Name Administration Dates Next Due HPV 9-Valent 12/22/2023 Hep B, adult 12/22/2023 Influenza injectable quadrivalent [...] not to disclose 2021 10:32 AM EDT Last Filed Vital Signs Vital Sign Reading Time Taken Comments Blood Pressure 149/74 12/29/2024 2:07 PM EDT Pulse 68 12/29/2024 2:07 PM EDT Temperature 36.8 ??C (98.2 ??F) 11/03/2024 2:13 PM ES T Respiratory Rate 21 12/29/2024 2:07 PM EDT Oxygen Saturation 98% 12/29/2024 2:07 PM EDT Inhaled Oxygen Concentration - - Weight 92.4 kg (203 lb 12.8 oz) 12/29/2024 2:07 PM EDT Height 180.3 cm (5' 11 ) 12/29/2024 2:07 PM EDT Body Mass Index 28.42 12/29/2024 2:07 PM EDT Plan of Treatment Upcoming Encounters Date Type Department Care Team (Late st Contact Info) Description 03/21/2025 11:30 AM EDT Office Visit [facility] [address] [place] [address] Name, MD Ramy [address] [place] [address] Health Maintenance Due Date Last Done Comments Family Planning (PISQ) 2013 HPV Vaccines (2 - 3-dose series) 01/19/2024 12/22/2023 Hepatitis B Vaccines (2 of 3 - 19+ 3-dose series) 01/19/2024 12/22/2023 SDOH Screening 08/05/2025 08/05/2024 Alcohol/Substance Use Screening 08/13/2025 08/13/2024 Depression Screening 08/13/2025 08/13/2024, 08/13/2024 Tobacco Screening 12/29/2025 12/29/2024 DTaP/Tdap/Td Vaccines (2 - T d or [...] EDT Dysuria Urethral discharge Scrotal pain Urethritis CHLAMYDIA/N. GONORRHOEAE RNA, TMA, UROGENITAL Routine 11/03/2024 2:29 PM EST Urethritis TRICHOMONAS VAGINALIS RNA, QUALITATIVE, TMA Routine 11/03/2024 12:00 AM EST Urethritis MYCOPLASMA/UREAPLASM A PANEL Routine 11/03/2024 12:00 AM EST URINALYSIS, COMPLETE, WITH REFLEX TO CULTURE Routine 10/20/2024 4:20 PM EST UTI symptoms Dysuria CHLAMYDIA/N. GONORRHOEAE RNA, TMA, UROGENITAL Routine 10/20/2024 4:20 PM EST Dysuria Penile discharge CANCELLED SEROLOGY Routine 10/18/2024 1: 14 PM EST POCT URINALYSIS DIPSTICK Routine 10/18/2024 1:12 PM EST UTI symptoms HEPATITIS C AB W/REFL TO HCV RNA, QN, PCR Routine 01/19/2024 1:06 PM EDT Penile discharge HIV 1/2 ANTIGEN/ANTIBODY, FOURTH GENERATION W/RFL Routine 01/19/2024 1:06 PM EDT Penile discharge from Last 3 Months or Most Recently Relevant to Health Maintenance Results * (ABNORMAL) Urinalysis, Complete, with Reflex to Culture (12/29/2024 2:30 PM EDT) Only the most recent of2 resultswithin the time period is included. Color Urine Yellow [facility] Appearance Urine Clear [facility] PH 6.0 5.0 - 9.0 [facility] Glucose Urine UA Negative Negative mg/dL [facility] Urine Blood Negative Negative [facility] Specific [place] - Urine 1.025 1.005 - 1.025 [facility] Urine Protein Negative Neg-Trace mg/dL [facility] Urine Ketones Trace Negative mg/dL [facility] Nitrite Urine Negative Negative [facility] Leukocyte Esterase Urine Trace(A) Negative [facility] RBC Urine 0-2 0 - 2 /HPF [facility] Urine WBC 11-20(A) 0 - 5 /HPF [facility] Urine Squamous Epithelial Cell 0-2 0 - 2 /HPF [facility] Urine Bacteria None Seen None Seen [facility] Hyaline Casts, Urine 0-2 0 - 2 /LPF [facility] Urine 12/29/2024 2:30 PM EDT 12/29/2024 5:02 PM EDT Narrative [facility] - 12/29/2024 5:19 PM EDT Urine, Clean Catch us Ramy Name LAB URINE ORDERABLES Final Resul t [facility] [address] [place] [phone] * Chlamydia/N. Gonorrhoeae RNA, TMA, Urine (11/03/2024 2:29 PM EST) Only the most recent of2 resultswithin the time period is included. CT PCR NOT DETECTED Not Detect. [facility] Comment:A not detected test result does not exclude the possibilityof infection because test results can be affected byimproper specimen collection, concurrent antibiotic therapy,or the number of organisms in the specimen which may bebelow the sensitivity of the test. As with many diagnostictests, results from the Xpert CT/NG assay should beinterpreted in conjunction with other laboratory andclinical data available to the clinician.Xpert CT/NG performance has not been evaluated in patientsless than 14 years of age. The assay should not be used forthe evaluationof suspected sexual abuse or for other medico-legalindications. Additional testing is recommended in anycircumstance when false positive or false negative resultscould lead to adverse medical, social or psychologicalconsequences. NG PCR NOT DETECTED Not Detect. [facility] Comment:A not detected test result does not exclude the possibilityof infection because test results can be affected byimproper specimen collection, concurrent antibiotic therapy,or the number of organisms in the specimen which may bebelow the sensitivity of the test. As with many diagnostictests, results from the Xpert CT/NG assay should beinterpreted in conjunction with other laboratory andclinical data available to the clinician.Xpert CT/NG performance has not been evaluated in patientsless than 14 years of age. The assay should not be used forthe evaluationof suspected sexual abuse or for other medico-legalindications. Additional testing is recommended in anycircumstance when false positive or false negative resultscould lead to adverse medical, social or psychologicalconsequences. Urine (Urine, Random) 11/03/2024 2:29 PM EST 11/03/2024 4:43 PM EST Narrative [facility] - 11/04/2024 6:37 AM EST Urine [facility] LAB MICROBIOLOGY - GENERA L ORDERABLES Final Result Performing Organization Address [facility] de Phone Number [facility] [address] [place] [phone] * Trichomonas RNA (Urine/Vaginal) (11/03/2024 12:00 AM EST) Trichomas vaginalis RNA, QL, TMA NOT DETECTED NOT DETECTED [facility] Comment:For additional infor cristobal, please refer tohttp://education.[employer]/faq/Trichomonastma(This link is being provided for informational/educational purposes only.)THIS TEST WAS PERFORMED AT:[employer] [place] [phone] CHENG MD Urine 11/03/2024 11/03/2024 [facility] LAB BODY FLUIDS AND STOOL S ORDERABLES Final Result Performing Organization Address [facility] Co de Phone Number [facility] [address] [place] [phone] * (ABNORMAL) Mycoplasma/Ureaplasma??Panel (11/03/2024 12:00 AM EST) Sureswab(R), Mycoplasma Hominis, Real-Time Pcr Not Detected Not Detected [facility] Comment:THIS TEST WAS PERFOR MED AT:[employer] [id number] [place] [phone] CANALES MD,PHD Mycoplasma Genitalium, rRNA,TMA Detected(A ) Not Detected [facility] Comment:THIS TEST WAS PERFOR MED AT:[employer] [address] [phone] CANALES MD,PHD U. Parvum DNA Not Detected Not Detected [facility] U. Urealyticum DNA Not Detected Not Detected [facility] Comment:This test was develo ped and its analyticalperformance characteristics have been determinedby [employer] [place], [place].It has not been cleared or approved by the FDA. Thisassay has been validated pursuant to the CLIAregulations and is used for clinical purposes.THIS TEST WAS PERFORMED AT:[employer] [id number] [place] [phone] CANALES MD,PHD 11/03/2024 11/03/2024 [facility] LAB MICROBIOLOGY - GENERA L ORDERABLES Final Result [facility] [address] [place] [phone] * Cancelled Serology (10/18/2024 1:14 PM EST) Cancelled Serology SEE NOTE [facility] Comment:THE FOLLOWING TESTS WERE CANCELLED: CTNG BY PCRREASON: WORNG CONTAINER 10/18/2024 1:14 PM EST 10/18/2024 5:59 PM EST us Ramy Hwang MD HISTORICAL/NON ORDERABLE LABS Fi nal Result Performing Organization Address [facility]/ZIP Co de Phone Number [facility] [address] [place] [phone] * (ABNORMAL) POCT urinalysis dipstick manually [...] Quantitative, Real-Time PCR (01/19/2024 1:06 PM EDT) Pathologist [facility] Hepatitis C Antibody Nonreactive Nonreactive [facility] Comment:Antibodies to HCV no t detected; does not exclude early acuteHCV infection. Blood Venous blood specimen / Unknown 01/19/2024 1:06 PM EDT 01/19/2024 4:08 PM EDT Taylor Chaves MD LAB BLOOD ORDERABLES Final Resul t Performing Organization Address City/[facility]/ZIP Co de Phone Number [facility] [address] [place] [phone] [phone] * HIV-1/2 Antigen and Antibodies, Fourth Generation, with Reflexes (01/19/2024 1:06 PM EDT) Pathologist [facility] HIV AB/AG Nonreactive Nonreactive [facility] Comment:HIV-1 p24 Ag and/or HIV-1/HIV-2 Ab not detected.A test result that is nonreactive does not exclude thepossibility of exposure to or infection with HIV-1 and/orHIV-2. Nonreactive results in this assay for individualswith prior exposure to HIV-1 and/or HIV-2 may be due toantigen and antibody levels that are below the limit ofdetection of this assay.The [employer] HIV Ag/Ab Combo assay result andsupplemental assay results should be interpreted inconjunction with the patient's clinical presentation,history and other laboratory results. If the results areinconsistent with clinical evidence, additional testing issuggested to confirm the result. Blood Venous blood specimen / Unknown 01/19/2024 1:06 PM EDT 01/19/2024 4:08 PM EDT us Taylor Chaves MD LAB BLOOD ORDERABLES Final Resul t [facility] [address] [place] [phone] from Last 3 Months or Most Recently Relevant to Health Maintenance Insurance [facility] PPO Care Teams Manager Organizational Relationship Specialty Start Date End Date Name, MD Ramy [address] [place] [phone] PCP - General Family Medicine 09/22/18
--- OUTSIDE RECORDS SUMMARY | 2024-12-29 17:54 | XMS_ITS | Encounter Summary ---
Author Organization [employer] Address [address] [facility] 7t [place] [address] Care Team Providers Care Associate Account Executive Name Role Phone Name, Ramy COCHRAN Primary Care Provider [phone] Reason for Visit * Reason Onset Date Comments Appointment Request 12/24/2024 Encounter Details Date Type Department Care Team ([facility] st Contact Info) Description 12/24/2024 Telephone [facility] [address] [place] [address] [place] Appointment Request Social History Tobacco Use Types [...] encounter Miscellaneous Notes * Telephone Encounter - Rock Chance [place] - 12/24/2024 2:55 PM EDT T/c placed to pt returning call, pt requesting a callback as he will like to r/s appointment scheduled due to work schedule. Pt is requesting appointment to be R/S for March or April. GABRIELLA unable to get a hold of pt lv for pt to call back due to request. documented in this encounter Plan of Treatment Upcoming Encounters Date Type Department Care Team (Late st Contact Info) Description 03/21/2025 11:30 AM EDT Office Visit [facility] [address] [place] [address] Name, MD Ramy [address] [place] [address] documented as of this encounter Visit Diagnoses Not on filedocumented in this encounter Additional Health Concerns Assessment Noted Time PHQ-9 Depression Total Score: 4 08/13/20 24 10:56 AM EST documented as of this encounter Care Teams Associate Account Executive Relationship Specialty Start Date End Date NameRamy MD [address] [place] [address] PCP - General Family Medicine 09/22/18 documented as of this encounter
--- OUTSIDE RECORDS SUMMARY | 2024-12-29 17:54 | XMS_ITS | Encounter Summary ---
Author Organization [employer] Address [address] [facility] 7 [place] [address] Care Team Providers Care Web Marketing Analyst Name Role Phone Name, Ramy COCHRAN Primary Care Provider [phone] Reason for Visit * Reason Onset Date Comments Nurse Triage 12/29/2024 Encounter Details Date Type Department Care Team ([facility] st Contact Info) Description 12/29/2024 Telephone [facility] [address] [place], [place] [phone] Name, MD Ramy [address] [place] [address] Nurse Triage Social History Tobacco Use Types [...] encounter Miscellaneous Notes * Telephone Encounter - Ammy Quintanilla RN - 12/29/2024 9:09 AM EDT Call returned to Warren Rodney to triage below. Reports last night having some penile discharge. Ptalso having pressure on right testicle. Per pt pain worse with bending and lifting. Per pt its a pressure feeling. No swelling of testicle. No rash on tip of penis. Pt is having burning with passing urine last night. No odor or dark color. No lower abdominal or flank pain per pt. Pt advised of disposition, agrees to sick on site with PCP for exam. Protocol Used: Penis and Scrotum Symptoms (Adult) Protocol-Based Disposition: See in Office or Video Visit Today Future Appointments Date Time Provider Department Center 12/29/2024 2:00 PM Ramy Hwang MD MEDICINE [facility] 03/21/2025 11:30 AM Ramy Hwang MD MEDICINE [facility] Insurance verified as active per Real Time Eligibility in [facility]. Positive Triage Questions: * Pain or burning with passing urine (urination) * Pus (white, yellow) or bloody discharge from end of penis * All higher-acuity triage questions were negative Care Advice Discussed: * Reassurance and Education - Urination Pain * Drink Extra Fluids * Reasons To Call Back - You become worse * Telephone Encounter - Barbara Simon - 12/29/2024 9:03 AM EDT Symptom: Penis and Testicle Symptoms Outcome: Schedule an urgent appointment (within 4 hours) or talk to a nurse or provider soon Reason: Started within the past 3 days The caller accepted this outcome. documented in this encounter Plan of Treatment Upcoming Encounters Date Type Department Care Team (Late st Contact Info) Description 03/21/2025 11:30 AM EDT Office Visit [facility] [address] [place] [phone] Name, MD Ramy [address] [place] [phone] documented as of this encounter Visit Diagnoses Not on filedocumented in this encounter Additional Health Concerns Assessment Noted Time PHQ-9 Depression Total Score: 4 08/13/20 24 10:56 AM EST documented as of this encounter Care Teams Web Marketing Analyst Relationship Specialty Start Date End Date Name, MD Ramy [address] [place] [phone] PCP - General Family Medicine 09/22/18 documented as of this encounter
--- OUTSIDE RECORDS SUMMARY | 2024-12-29 17:54 | XMS_ITS | Encounter Summary ---
Author Organization [employer] Address [address] [facility] 7t [place] [address] Care Team Providers Care Brand Activation Manager Name Role Phone Name, Ramy COCHRAN Primary Care Provider [phone] Encounter Details Date Type Department Care Team (Latest Contact Info) Description 12/29/2024 Travel Social History Tobacco Use Types Packs/Day [...] AM EDT documented as of this encounter Plan of Treatment Upcoming Encounters Date Type Department Care Team (Late st Contact Info) Description 03/21/2025 11:30 AM EDT Office Visit [facility] [address] [place] [phone] NameRamy MD [address] [place] [phone] documented as of this encounter Visit Diagnoses Not on filedocumented in this encounter Additional Health Concerns Assessment Noted Time PHQ-9 Depression Total Score: 4 08/13/20 24 10:56 AM EST documented as of this encounter Care Teams Brand Activation Manager Relationship Specialty Start Date End Date NameRamy MD [address] [place] [phone] PCP - General Family Medicine 09/22/18 documented as of this encounter
[2024-12-30 09:35] LABS: CT PCR NOT DETECTED (Not Detect.); NG PCR NOT DETECTED (Not Detect.)
[2025-01-02 02:29] LABS: Mycoplasma genitalium NAA Detected (Not Detected)
== END 2024-12-29 17:00 | disposition home or self-care (01) ==
LOC: HO.HHCLNP 16:59
PROVIDERS: Visit Provider Internal Medicine Geriatric Medicine
DX: R30.0 Dysuria (principal); R36.9 Urethral discharge, unspecified; N50.82 Scrotal pain; N34.2 Other urethritis
CPT/HCPCS: 81001; 87086; 87491; 87563; 87591